=== PATIENT | male | born 1965 | race African-American/Black ===

== ENCOUNTER 2023-12-23 09:43 | Outpatient (AMB) | payer OTHER, SELFPAY ==
[2023-12-23 09:41] VITALS: BP 120/80; PULSE 54; O2SAT 100; BMI 26.9
--- NOTE | 2023-12-23 09:41 | HO.NEPHOV ---
Vital Signs 12/23/23 09:41 Height 6 ft 1 in Weight 204 lb BMI 26.9 BP 120/80 Blood Pressure Location Lt brachial Position Sitting Pulse 54 Pulse Source Pulse Oximeter Pulse Oximetry (%) 100 Oxygen Delivery Method Room Air Intake Visit Reasons: Previous Patient Clinical Exercise Specialist Required: No Accompanied by: Self / Same As Patient Allergies No Known Allergies Allergy (Verified 12/23/23 09:43) HPI Comments Details: Dada is well known to me for the last 20 years. 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 Over the last several years he has been on low-dose of JENNIFER inhibitors which she has tolerated very well. He had no significant protein excretion on the recent studies. Serum creatinine has been staying around 1.2-1.2 mg/dL. Recently creatinine bumped up to 1.64 and hence this referral. Dada tells me that he has been taking creatinine as a muscle supplement and he goes to gym regularly. [facility] Social History (Updated 12/23/23 @ 09:43 by VERONIKA Ledbetter) Comment: Occ Review of Systems Const Denies fever(s) and Denies weight loss Card Denies chest pain Resp Denies cough and Denies hemoptysis GI Denies abdominal pain, Denies diarrhea and Denies nausea Musc Denies back pain Neuro Denies focal weakness Physical Exam Vital Signs: Last Vital Signs Pulse 54 12/23/23 09:41 BP 120/80 12/23/23 09:41 Pulse Ox 100 12/23/23 09:41 Oxygen Delivery Method Room Air 12/23/23 09:41 BMI result Body Mass Index 26.9 Const General: comfortable; No acute distress Orientation/consciousness: patient oriented x3 Eyes General: appearance normal, both eyes and all related structures Visual Patel: normal visual patel by confrontation Neck Neck: Yes supple and Yes no JVD Resp Effort & Inspection: normal respiratory effort and respiratory effort not decreased Auscultation: rhonchi Cardio Palpation: no palpable S3 and no palpable S4 Heart sounds: no rubs GI Inspection: Yes normal to inspection Palpation (GI): Soft to palpation Percussion: Yes normal to percussion Auscultation: normal bowel sounds General: Yes no CVA tenderness Back/Spine/Pelvis Back: no CVA tenderness Skin General skin exam: no petechiae and no purpura Neuro General: patient oriented x3 and no focal motor deficits Extrem General: No clubbing and No edema Results Reviewed Results Reviewed: Creatinine 1.6 Nephrology Results: No Data to Display Assessment & Plan Assessment & Plan (1) Elevated serum creatinine: Code(s): R79.89 - Other specified abnormal findings of blood chemistry Category: Medical (2) Focal segmental glomerulosclerosis: Code(s): N05.1 - Unspecified nephritic syndrome with focal and segmental glomerular lesions Category: Medical Plan Dada as 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 He has been conservatively managed with JENNIFER inhibition and blood pressure controlled. Serum creatinine has been stable around 1.2 mg/dL for last several years. There has been a recent increase serum creatinine up to 1.6 mg/dL. However he has also been taking creatinine supplements and he has been exercising regularly. Although the recent serum creatinine could be due to natural progression of underlying disease, the role of creatinine and increased muscle mass should be considered. For now I will start with a 24 urine collection to calculate the creatinine clearance and to quantify the urine protein excretion. Based on this we can plan on further workup if needed. His blood pressure is acceptable Continue with JENNIFER inhibitor for renal protection and blood pressure control. Encouraged him to stand low-sodium diet. He returned to the office after the baseline workup is completed Orders: Orders Basic Metabolic Panel Today R79.89 - Other specified abnormal findings of blood chemistry UA and rflx microscopic Today R7.89 - Other specified abnormal findings of blood chemistry Creatinine Urine Today R79.89 - Other specified abnormal findings of blood chemistry Protein, 24 Hr Urine Group Today R79.89 - Other specified abnormal findings of blood chemistry Creatinine, 24 Hr Group Today R79.89 - Other specified abnormal findings of blood chemistry Creatine Kinase Total Today R7.89 - Other specified abnormal findings of blood chemistry Coding Level of Care Code New Pt Level 4 (04220) Diagnoses Elevated serum creatinine R7. Focal segmental glomerulosclerosis N05.1
== END 2023-12-23 10:01 | disposition home or self-care (01) ==
PROVIDERS: PCP Internal Medicine; Visit Provider Internal Medicine Hypertension Specialist
DX: R79.89 Other specified abnormal findings of blood chemistry (principal); N05.1 Unspecified nephritic syndrome with focal and segmental glomerular lesions
CPT/HCPCS: 99204

== ENCOUNTER → 2023-12-23 09:43 | Outpatient (BNVA) | payer OTHER, SELFPAY | PROVIDERS: PCP Internal Medicine; Visit Provider Internal Medicine Hypertension Specialist ==

== ENCOUNTER 2023-12-23 10:09 | Outpatient (REF) | payer OTHER, SELFPAY ==
[2023-12-23 18:08] LABS: Appearance Urine Clear; Color Urine Yellow; Glucose Urine UA Negative (Negative); Leukocyte Esterase Urine Negative (Negative); Nitrite Urine Negative (Negative); UMIC TRIGGER UA YES; Urine Blood Negative (Negative); Urine Ketones Negative (Negative); Urine Protein 100 (2+) mg/dL (Neg-Trace)
[2023-12-23 18:21] LABS: Creatinine Urine 221.41 mg/dL
[2023-12-23 18:27] LABS: Anion Gap 14 (12-20); Blood Urea Nitrogen 10 mg/dL (9-16); Calcium 9.4 mg/dL (8.4-10.2); Carbon Dioxide 25 mmol/L (22-29); Chloride 105 mmol/L (96-108); Estimated Glomerular Filt Rate > 60; Glucose Random 124 mg/dL (60-115); Potassium 3.8 mmol/L (3.3-5.1); Sodium 140 mmol/L (135-145)
[2023-12-23 18:52] LABS: Bacteria Urine None Seen (None Seen); Hyaline Casts Urine 0-2 /LPF (0-2); RBC Urine 0-2 /HPF (0-2); Squamous Epithelial Cell Urine 0-2 /HPF (0-2); WBC Urine 0-5 /HPF (0-5)
== END 2023-12-23 10:10 | disposition home or self-care (01) ==
LOC: HO.HKASLDS 10:09
PROVIDERS: Visit Provider Internal Medicine Hypertension Specialist
DX: R79.89 Other specified abnormal findings of blood chemistry (principal)
CPT/HCPCS: 36415; 80048; 81001; 82570

== ENCOUNTER 2024-01-06 09:52 | Outpatient (AMB) | payer OTHER, SELFPAY ==
[2024-01-06 09:53] VITALS: BP 110/80; PULSE 56; O2SAT 96; BMI 26.8
--- NOTE | 2024-01-06 09:53 | HO.NEPHOV ---
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 Over the last several years he has been on low-dose of JENNIFER inhibitors which she has tolerated very well. He had no significant protein excretion on the recent studies. Serum creatinine has been staying around 1.2-1.2 mg/dL. Recently creatinine bumped up to 1.64 and hence this referral. Dada tells me that he has been taking creatinine as a muscle supplement and he goes to gym regularly. [facility] Social History Comment: Occ Physical Exam Vital Signs: Last Vital Signs Pulse 56 01/06/24 09:53 BP 110/80 01/06/24 09:53 Pulse Ox 96 01/06/24 09:53 Oxygen Delivery Method Room Air 01/06/24 09:53 BMI result Body Mass Index 26.8 Const General: comfortable; No acute distress Orientation/consciousness: patient oriented x3 Eyes General: appearance normal, both eyes and all related structures Visual Jaimes: normal visual jaimes by confrontation Neck Neck: Yes supple and Yes no JVD Resp Effort & Inspection: normal respiratory effort and respiratory effort not decreased Auscultation: rhonchi Cardio Palpation: no palpable S3 and no palpable S4 Heart sounds: no rubs GI Inspection: Yes normal to inspection Palpation (GI): Soft to palpation Percussion: Yes normal to percussion Auscultation: normal bowel sounds General: Yes no CVA tenderness Back/Spine/Pelvis Back: no CVA tenderness Skin General skin exam: no petechiae and no purpura Neuro General: patient oriented x3 and no focal motor deficits Extrem General: No clubbing and No edema Results Reviewed Nephrology Results: Sodium 140 mmol/L (135-145) 12/23/23 Potassium 3.8 mmol/L (3.3-5.1) 12/23/23 Chloride 105 mmol/L (96-108) 12/23/23 Carbon Dioxide 25 mmol/L (22-29) 12/23/23 BUN 10 mg/dL (9-16) 12/23/23 Creatinine 1.15 mg/dL (0.5-1.4) 12/23/23 Calcium 9.4 mg/dL (8.4-10.2) 12/23/23 Urine Protein 100 (2+) mg/dL (Neg-Trace) H 12/23/23 Urine Creatinine 221.41 mg/dL 12/23/23 Assessment & Plan Assessment & Plan (1) Elevated serum creatinine: Code(s): R79.89 - Other specified abnormal findings of blood chemistry Category: Medical (2) Focal segmental glomerulosclerosis: Code(s): N05.1 - Unspecified nephritic syndrome with focal and segmental glomerular lesions Category: Medical Plan Dada as 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 He has been conservatively managed with JENNIFER inhibition and blood pressure controlled. Serum creatinine has been stable around 1.2 mg/dL for last several years. There has been a recent increase serum creatinine up to 1.6 mg/dL. However he has also been taking creatinine supplements and he has been exercising regularly. Although the recent serum creatinine could be due to natural progression of underlying disease, the role of creatinine and increased muscle mass should be considered. 24 urine collection to creatinine clearance protein excretion of 1680 mg eGFR of 63 ml/mt No need for repeat biopsy Keep on ACEi Follow creatinine and protein excretion His blood pressure is acceptable Continue with JENNIFER inhibitor for renal protection and blood pressure control. Encouraged him to stand low-sodium diet. Orders: Orders Total Protein Urine Random 2 Months N05.1 - Unspecified nephritic syndrome with focal and segmental glomerular lesions, R79.89 - Other specified abnormal findings of blood chemistry Creatinine Urine 2 Months N05.1 - Unspecified nephritic syndrome with focal and segmental glomerular lesions, R79.89 - Other specified abnormal findings of blood chemistry UA and rflx microscopic 2 Months N05.1 - Unspecified nephritic syndrome with focal and segmental glomerular lesions, R79.89 - Other specified abnormal findings of blood chemistry Basic Metabolic Panel 2 Months N05.1 - Unspecified nephritic syndrome with focal and segmental glomerular lesions, R79.89 - Other specified abnormal findings of blood chemistry Medications: Changed From lisinopril 5 mg PO DAILY To lisinopril 10 mg PO DAILY 90 tabs 1RF Coding Level of Care Code Est Pt Level 4 (43123) Diagnoses Elevated serum creatinine R79.89 Focal segmental glomerulosclerosis N05.1
== END 2024-01-06 10:06 | disposition home or self-care (01) ==
PROVIDERS: PCP Internal Medicine; Visit Provider Internal Medicine Hypertension Specialist
DX: R79.89 Other specified abnormal findings of blood chemistry (principal); N05.1 Unspecified nephritic syndrome with focal and segmental glomerular lesions
CPT/HCPCS: 99214

== ENCOUNTER → 2024-01-06 09:52 | Outpatient (BNVA) | payer OTHER, SELFPAY | PROVIDERS: PCP Internal Medicine; Visit Provider Internal Medicine Hypertension Specialist ==

== ENCOUNTER 2024-03-09 09:05 | Outpatient (AMB) | payer OTHER, SELFPAY ==
[2024-03-09 09:03] VITALS: BP 114/72; PULSE 58; O2SAT 97; BMI 26.8
--- NOTE | 2024-03-09 09:03 | HO.NEPHOV ---
Vital Signs 03/09/24 09:03 Height 6 ft 1 in Weight 203 lb BMI 26.8 BP 114/72 Blood Pressure Location Lt brachial Position Sitting Pulse 58 Pulse Source Pulse Oximeter Pulse Oximetry (%) 97 Oxygen Delivery Method Room Air Intake Visit Reasons: Elevated serum creatinine/ Conf Irrigation System Installer Required: No Accompanied by: Self / Same As Patient Allergies No Known Allergies Allergy (Verified 03/09/24 09:08) Medication List - Last Reconciled 03/09/24 by Feliciano Desir MD lisinopril 10 mg PO DAILY HPI Comments Details: Dada is well known to me for the last 20 years. 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 Over the last several years he has been on low-dose of JENNIFER inhibitors which she has tolerated very well. He had no significant protein excretion on the recent studies. Serum creatinine has been staying around 1.2-1.2 mg/dL. Recently creatinine bumped up to 1.64 and hence this referral. Dada tells me that he has been taking creatinine as a muscle supplement and he goes to gym regularly. 03/09/24 Takes 4 scoops of Creatinine , 1 protein shake and negron beers [facility] Social History Comment: Occ Physical Exam Vital Signs: Last Vital Signs Pulse 58 03/09/24 09:03 BP 114/72 03/09/24 09:03 Pulse Ox 97 03/09/24 09:03 Oxygen Delivery Method Room Air 03/09/24 09:03 BMI result Body Mass Index 26.8 Const General: comfortable; No acute distress Orientation/consciousness: patient oriented x3 Eyes General: appearance normal, both eyes and all related structures Visual Jaimes: normal visual jaimes by confrontation Neck Neck: Yes supple and Yes no JVD Resp Effort & Inspection: normal respiratory effort and respiratory effort not decreased Auscultation: rhonchi Cardio Palpation: no palpable S3 and no palpable S4 Heart sounds: no rubs GI Inspection: Yes normal to inspection Palpation (GI): Soft to palpation Percussion: Yes normal to percussion Auscultation: normal bowel sounds General: Yes no CVA tenderness Back/Spine/Pelvis Back: no CVA tenderness Skin General skin exam: no petechiae and no purpura Neuro General: patient oriented x3 and no focal motor deficits Extrem General: No clubbing and No edema Results Reviewed Nephrology Results: Sodium 140 mmol/L (135-145) 12/23/23 Potassium 3.8 mmol/L (3.3-5.1) 12/23/23 Chloride 105 mmol/L (96-108) 12/23/23 Carbon Dioxide 25 mmol/L (22-29) 12/23/23 BUN 10 mg/dL (9-16) 12/23/23 Creatinine 1.15 mg/dL (0.5-1.4) 12/23/23 Calcium 9.4 mg/dL (8.4-10.2) 12/23/23 Urine Protein 100 (2+) mg/dL (Neg-Trace) H 12/23/23 Urine Creatinine 221.41 mg/dL 12/23/23 Assessment & Plan Assessment & Plan (1) Elevated serum creatinine: Code(s): R79.89 - Other specified abnormal findings of blood chemistry Category: Medical (2) Focal segmental glomerulosclerosis: Code(s): N05.1 - Unspecified nephritic syndrome with focal and segmental glomerular lesions Category: Medical Plan Dada as 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 He has been conservatively managed with JENNIFER inhibition and blood pressure controlled. Serum creatinine has been stable around 1.2 mg/dL for last several years. There has been a recent increase serum creatinine up to 1.6 mg/dL. However he has also been taking creatinine supplements and he has been exercising regularly. Although the recent serum creatinine could be due to natural progression of underlying disease, the role of creatinine and increased muscle mass should be considered. Also, Consumption of Creatine could be contributing 24 urine collection to creatinine clearance protein excretion of 1680 mg eGFR of 63 ml/mt No need for repeat biopsy Keep on ACEi His blood pressure is acceptable Continue with JENNIFER inhibitor for renal protection and blood pressure control. Encouraged him to stand low-sodium diet. Will follow creatinine and urine PRo: Cr Orders: Orders Creatinine Urine Today N05.1 - Unspecified nephritic syndrome with focal and segmental glomerular lesions, R79.89 - Other specified abnormal findings of blood chemistry Total Protein Urine Random Today N05.1 - Unspecified nephritic syndrome with focal and segmental glomerular lesions, R79.89 - Other specified abnormal findings of blood chemistry Coding Level of Care Code Est Pt Level 4 (16159) Diagnoses Elevated serum creatinine R79.89 Focal segmental glomerulosclerosis N05.1
== END 2024-03-09 09:31 | disposition home or self-care (01) ==
PROVIDERS: PCP Internal Medicine; Visit Provider Internal Medicine Hypertension Specialist
DX: R79.89 Other specified abnormal findings of blood chemistry (principal); N05.1 Unspecified nephritic syndrome with focal and segmental glomerular lesions
CPT/HCPCS: 99214

== ENCOUNTER → 2024-03-09 09:05 | Outpatient (BNVA) | payer OTHER, SELFPAY | PROVIDERS: PCP Internal Medicine; Visit Provider Internal Medicine Hypertension Specialist ==

== ENCOUNTER 2024-03-09 09:19 | Outpatient (REF) | payer OTHER, SELFPAY ==
[2024-03-09 17:45] LABS: Appearance Urine Clear; Color Urine Yellow; Glucose Urine UA Negative (Negative); Leukocyte Esterase Urine Negative (Negative); Nitrite Urine Negative (Negative); Specific Gravity - Urine 1.025 (1.005-1.025); UMIC TRIGGER UA YES; Urine Blood Negative (Negative); Urine Ketones Trace mg/dL (Negative); Urine Protein 300 (3+) mg/dL (Neg-Trace)
[2024-03-09 17:50] LABS: Bacteria Urine None Seen (None Seen); Hyaline Casts Urine 0-2 /LPF (0-2); RBC Urine 0-2 /HPF (0-2); Squamous Epithelial Cell Urine 0-2 /HPF (0-2); WBC Urine 0-5 /HPF (0-5)
[2024-03-09 17:59] LABS: Anion Gap 9 (12-20); Blood Urea Nitrogen 12 mg/dL (9-16); Calcium 9.4 mg/dL (8.4-10.2); Carbon Dioxide 29 mmol/L (22-29); Chloride 105 mmol/L (96-108); Estimated Glomerular Filt Rate 50; Glucose Random 150 mg/dL (60-115); Potassium 3.5 mmol/L (3.3-5.1); Sodium 139 mmol/L (135-145)
[2024-03-09 18:10] LABS: Creatinine Urine 321.72 mg/dL; Total Protein Urine Random 144 mg/dL (<12)
== END 2024-03-09 09:20 | disposition home or self-care (01) ==
LOC: HO.HKASLDS 09:19
PROVIDERS: Visit Provider Internal Medicine Hypertension Specialist
DX: N05.1 Unspecified nephritic syndrome with focal and segmental glomerular lesions (principal); R79.89 Other specified abnormal findings of blood chemistry
CPT/HCPCS: 36415; 80048; 81001; 82570; 84156

== ENCOUNTER 2024-07-25 14:26 | Outpatient (AMB) | payer OTHER, SELFPAY ==
--- NOTE | 2024-07-25 14:27 | HO.NEPHOV ---
Vital Signs 07/25/24 14:28 Height 6 ft 1 in Weight 200 lb BMI 26.4 BP 108/66 Blood Pressure Location Lt brachial Position Sitting Pulse 64 Pulse Source Pulse Oximeter Pulse Oximetry (%) 96 Oxygen Delivery Method Room Air Intake Visit Reasons: 4 mon follow up-Conf Child Study Team Director Required: No Accompanied by: Self / Same As Patient Allergies No Known Allergies Allergy (Verified 07/25/24 14:30) Medication List - Last Reconciled 07/25/24 by Feliciano Desir MD lisinopril 10 mg PO DAILY HPI Comments Details: Dada is well known to me for the last 20 years. 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 Over the last several years he has been on low-dose of JENNIFER inhibitors which she has tolerated very well. He had no significant protein excretion on the recent studies. Serum creatinine has been staying around 1.2-1.2 mg/dL. Recently creatinine bumped up to 1.64 and hence this referral. Dada tells me that he has been taking creatinine as a muscle supplement and he goes to gym regularly. 03/09/24 Takes 4 scoops of Creatinine , 1 protein shake and negron beers 07/25/24 Doing well Has cut back on Creatine [facility] Social History Comment: Occ Physical Exam Vital Signs: Last Vital Signs Pulse 64 07/25/24 14:28 BP 108/66 07/25/24 14:28 Pulse Ox 96 07/25/24 14:28 Oxygen Delivery Method Room Air 07/25/24 14:28 BMI result Body Mass Index 26.4 Comfortable Neck supple no JVD. Lungs entry equal no rales. Heart S1-S2 heard no gallop or rub. Abdomen soft nontender. Neuro alert awake oriented. No asterixis. Extremities no edema. Results Reviewed Nephrology Results: Sodium 141 mmol/L (135-145) 07/25/24 Potassium 4.1 mmol/L (3.3-5.1) 07/25/24 Chloride 108 mmol/L (96-108) 07/25/24 Carbon Dioxide 28 mmol/L (22-29) 07/25/24 BUN 11 mg/dL (9-16) 07/25/24 Creatinine 1.23 mg/dL (0.5-1.4) 07/25/24 Calcium 9.4 mg/dL (8.4-10.2) 07/25/24 Urine Protein 100 (2+) mg/dL (Neg-Trace) H 07/25/24 Urine Creatinine 166.16 mg/dL 07/25/24 Assessment & Plan Assessment & Plan (1) Elevated serum creatinine: Code(s): R79.89 - Other specified abnormal findings of blood chemistry Category: Medical (2) Focal segmental glomerulosclerosis: Code(s): N05.1 - Unspecified nephritic syndrome with focal and segmental glomerular lesions Category: Medical Plan Dada as 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 He has been conservatively managed with JENNIFER inhibition and blood pressure controlled. Serum creatinine has been stable around 1.2 mg/dL for last several years. There has been a recent increase serum creatinine up to 1.6 mg/dL. However he has also been taking creatinine supplements and he has been exercising regularly. Although the recent serum creatinine could be due to natural progression of underlying disease, the role of creatinine and increased muscle mass should be considered. Also, Consumption of Creatine could be contributing 24 urine collection to creatinine clearance protein excretion of 1680 mg eGFR of 63 ml/mt No need for repeat biopsy Keep on ACEi His blood pressure is acceptable Continue with JENNIFER inhibitor for renal protection and blood pressure control. Encouraged him to stand low-sodium diet. Will follow creatinine and urine Pro: Cr Orders: Orders UA and rflx microscopic 07/25/24 N05.1 - Unspecified nephritic syndrome with focal and segmental glomerular lesions Basic Metabolic Panel 07/25/24 N05.1 - Unspecified nephritic syndrome with focal and segmental glomerular lesions Total Protein Urine Random 07/25/24 N05.1 - Unspecified nephritic syndrome with focal and segmental glomerular lesions Creatinine Urine 07/25/24 N05.1 - Unspecified nephritic syndrome with focal and segmental glomerular lesions Coding Level of Care Code Est Pt Level 4 (31846) Diagnoses Elevated serum creatinine R79.89 Focal segmental glomerulosclerosis N05.1
[2024-07-25 14:28] VITALS: BP 108/66; PULSE 64; O2SAT 96; BMI 26.4
--- OUTSIDE RECORDS SUMMARY | 2024-07-25 18:54 | XMS_ITS | Clinical Summary ---
Author Organization [facility] Address [address] [place] [id number] Care Team Providers Care Senior Software Qa Engineer Name Role Phone Unavailable Primary Care Provider Unavailabl e Allergies No known active allergies Medications hydrocortisone (WESTCORT) 0.2 % cream Apply BID to affected areas 0 Active lisinopril 5 MG tabletIndication s:Hypertensive chronic kidney disease, unspecified, with chronic kidney disease stage I through stage IV, or unspecified TAKE ONE TABLET BY MOUTH ONCE DAILY 90 tablet 3 3 Active Active Problems Problem Noted Date Diagnosed Date Chronic glomerulonephritis 07/17/2021 Chronic kidney disease stage 1 07/17/2021 Hypertensive chronic kidney disease, unspecified, with chronic kidney disease stage I through stage IV, or unspecified 07/17/2021 Benign prostatic hyperplasia with lower urinary tract symptom 09/18/2017 Overview (07/17/2021): Seeing Dr Mccartney for urology. Lumbar disc prolapse with radiculopathy 07/20/19 15 Overview (07/17/2021): At L4-L5, 1.3 x 0.7 x 0.8 cm disc herniation compressing the right L5 nerve root in the spinal canal and right lateral recess. At L5-S1, left disc herniation compresses the left S1 nerve root in the canal and lateral recess. 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 08/20/2006 Immunizations Name Administration Dates Next Due Influenza TIV (IM) 04/13/2019,04/20/2018 Pneumococcal Polysaccharide 01/26/2018 Td 09/10/1998 Tdap 01/26/2018,01/28/2008 Family History Medical History Relation Comments Diabetes Father Heart disease Father Hypertension Father Cancer Mother Relation Status Comments Father Unknown Mother Unknown Social History Tobacco Use Types Packs/Day Years Used Date Smoking Tobacco: Smoker, Current Status Unknown Cigars Smokeless Tobacco: Never Tobacco Cessation:Ready to Q uit: No; Counseling Given: No Alcohol Use Standard Drinks/Week Comments Yes 0 (1 standard drink = 0.6 oz pure alcohol) Alcoholic Drinks/day: Occasional social drink Sex and Gender Information Value Date Recorded Sex Assigned at Not on file Legal Sex Male 4:59 PM EST Gender Identity Not on file Sexual Orientation Not on file Last Filed Vital Signs Vital Sign Reading Time Taken Comments Blood Pressure 124/76 07/17/2021 12:53 PM EST Pulse 61 07/17/2021 12:53 PM EST Temperature - - Respiratory Rate - - Oxygen Saturation 100% 07/17/2021 12:53 PM EST Inhaled Oxygen Concentration - - Weight 89.8 kg (198 lb) 07/17/2021 12:53 PM EST Height 185.4 cm (6' 1 ) 07/25/2020 12:00 PM EST Body Mass Index 26.12 07/25/2020 12:00 PM EST Plan of Treatment Health Maintenance Due Date Last Done Comments Hepatitis B Vaccine (1 of 3 - 19+ 3-dose series) 11/08/1983 Colorectal Cancer Screening: Annual FOBT 2013 Colorectal Cancer Screening: Colonoscopy 2013 Colorectal Cancer Screening: Sigmoidoscopy 2013 Pneumococcal Vaccine: Pediat rics (0 to 5 Years) and At-Risk Patients (6 to 64 Years) (2 of 2 - PCV) 01/26/2019 01/26/2018 Influenza Vaccine (#1) 2024 04/13/2019, 2017 Insurance [employer] [facility]
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
--- OUTSIDE RECORDS SUMMARY | 2024-07-25 18:54 | XMS_ITS | Encounter Summary ---
Author Organization [facility] Address [address] [facility] [address] [place] [address] Phone Care Team Providers Care Quality Supervisor Name Role Phone Unavailable Primary Care Provider Unavailabl e Reason for Visit * Reason Comments Med Refill Encounter Details Date Type Department Care Team ([facility] st Contact Info) Description 10/08/2020 Refill [facility] [address] [facility] [address] [place] [address] Coy Webber MD [address] [facility] [address] [place] [phone] Social History Tobacco Use Types Packs/Day Years Used Date Smoking Tobacco: Smoker, Current Status Unknown Alcohol Use Standard Drinks/Week Comments Yes 0 (1 standard drink = 0.6 oz pure alcohol) Alcoholic Drinks/day: Occasional social drink Sex and Gender Information Value Date Recorded Sex Assigned at Not on file Legal Sex Male 4:59 PM EST Gender Identity Not on file Sexual Orientation Not on file COVID-19 Exposure Response Date Recorded In the last month, have you been in contact with someone who was confirmed or suspected to have Coronavirus / COVID-19? No / Unsure 09/19/2020 9:24 AM EDT documented as of this encounter Miscellaneous Notes * Telephone Encounter - Holly Stallings - 10/17/2020 1:43 PM EDT Matt Barakat Pt is a Dr.Athreya lares and needs a refill on his lisinopril. It was send to but he is away. * Telephone Encounter - Coy Webber MD - 10/08/2020 9:56 AM EDT Forward this RX to Dr Valdovinos documented in this encounter Plan of Treatment Not on file documented as of this encounter Visit Diagnoses Not on filedocumented in this encounter
--- OUTSIDE RECORDS SUMMARY | 2024-07-25 18:54 | XMS_ITS | Encounter Summary ---
Author Organization [facility] Address [address] [place] [address] Care Team Providers Care Decorator Store Name Role Phone Akash Blas MD Primary Care Provider [phone] Reason for Visit * Reason Onset Date Comments Elbow Injury 07/11/2024 Encounter Details Date Type Department Care Team (Late st Contact Info) Description 07/11/2024 Telephone Internal Medicine - [facility] [address] [place] [address] Akash Blas MD [address] [place] [address] [phone] Elbow Injury Social History Tobacco Use Types Packs/Day Years [...] file Not on file Not on file documented as of this encounter Plan of Treatment Upcoming Encounters Date Type Department Care Team (Late st Contact Info) Description 08/08/2024 8:45 AM EST [facility] [address] [place] [address] Vci Crocker PA [address] [place] [address] documented as of this encounter Visit Diagnoses Not on filedocumented in this encounter Care Teams Decorator Store Relationship Specialty Start Date End Date Akash Blas MD [address] [place] [address] PCP - General Internal Medicine 05/11/24 documented as of this encounter
== END 2024-07-25 14:51 | disposition home or self-care (01) ==
PROVIDERS: PCP Internal Medicine; Visit Provider Internal Medicine Hypertension Specialist
DX: R79.89 Other specified abnormal findings of blood chemistry (principal); N04.1 Nephrotic syndrome with focal and segmental glomerular lesions
CPT/HCPCS: 99214

== ENCOUNTER 2024-07-25 14:26 | Outpatient (REF) | payer OTHER, SELFPAY ==
[2024-07-25 15:33] LABS: Appearance Urine Clear; Color Urine Yellow; Glucose Urine UA Negative (Negative); Leukocyte Esterase Urine Negative (Negative); Nitrite Urine Negative (Negative); UMIC TRIGGER UA YES; Urine Blood Negative (Negative); Urine Ketones Negative (Negative); Urine Protein 100 (2+) mg/dL (Neg-Trace)
[2024-07-25 15:35] LABS: Bacteria Urine None Seen (None Seen); Hyaline Casts Urine 0-2 /LPF (0-2); RBC Urine 0-2 /HPF (0-2); Squamous Epithelial Cell Urine 0-2 /HPF (0-2); WBC Urine 0-5 /HPF (0-5)
[2024-07-25 15:54] LABS: Anion Gap 9 (12-20); Blood Urea Nitrogen 11 mg/dL (9-16); Calcium 9.4 mg/dL (8.4-10.2); Carbon Dioxide 28 mmol/L (22-29); Chloride 108 mmol/L (96-108); Estimated Glomerular Filt Rate > 60; Glucose Random 75 mg/dL (60-115); Potassium 4.1 mmol/L (3.3-5.1); Sodium 141 mmol/L (135-145)
[2024-07-25 16:28] LABS: Creatinine Urine 166.16 mg/dL; Total Protein Urine Random 56 mg/dL (<12)
== END 2024-07-25 14:27 | disposition home or self-care (01) ==
LOC: HO.LAB 14:26
PROVIDERS: PCP Internal Medicine; Visit Provider Internal Medicine Hypertension Specialist
DX: N05.1 Unspecified nephritic syndrome with focal and segmental glomerular lesions (principal); R79.89 Other specified abnormal findings of blood chemistry
CPT/HCPCS: 36415; 80048; 81001; 82550; 82570; 84156

== ENCOUNTER 2025-01-23 11:27 | Outpatient (AMB) | payer OTHER, SELFPAY ==
--- NOTE | 2025-01-23 11:32 | HO.NEPHOV ---
Vital Signs 01/23/25 11:33 Height 6 ft 1 in Weight 205 lb BMI 27.0 BP 128/76 Blood Pressure Location Rt brachial Position Sitting Pulse 69 Pulse Source Pulse Oximeter Pulse Oximetry (%) 99 Oxygen Delivery Method Room Air Intake Visit Reasons: Elevated serum creatinine-Conf Saturation Equipment Operator Required: No Accompanied by: Self / Same As Patient Allergies No Known Allergies Allergy (Verified 01/23/25 11:34) Medication List - Last Reconciled 01/23/25 by Feliciano Desir MD lisinopril 10 mg PO DAILY HPI Comments Details: Dada is well known to me for the last 20 years. 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 Over the last several years he has been on low-dose of JENNIFER inhibitors which she has tolerated very well. He had no significant protein excretion on the recent studies. Serum creatinine has been staying around 1.2-1.2 mg/dL. Recently creatinine bumped up to 1.64 and hence this referral. Dada tells me that he has been taking creatinine as a muscle supplement and he goes to gym regularly. 03/09/24 Takes 4 scoops of Creatinine , 1 protein shake and negron beers 07/25/24 Doing well Has cut back on Creatine 01/23/2025. Overall he is doing well. No new issues today [facility] Social History Comment: Occ Physical Exam Vital Signs: Last Vital Signs Pulse 69 01/23/25 11:33 BP 128/76 01/23/25 11:33 Pulse Ox 99 01/23/25 11:33 Oxygen Delivery Method Room Air 01/23/25 11:33 BMI result Body Mass Index 27.0 Comfortable Neck supple no JVD. Lungs entry equal no rales. Heart S1-S2 heard no gallop or rub. Abdomen soft nontender. Neuro alert awake oriented. No asterixis. Extremities no edema. Results Reviewed Nephrology Results: Sodium, (135-145) 141 mmol/L 07/25/24 Potassium, (3.3-5.1) 4.1 mmol/L 07/25/24 Chloride, (96-108) 108 mmol/L 07/25/24 Carbon Dioxide, (22-29) 28 mmol/L 07/25/24 BUN, (9-16) 11 mg/dL 07/25/24 Creatinine, (0.5-1.4) 1.23 mg/dL 07/25/24 Calcium, (8.4-10.2) 9.4 mg/dL 07/25/24 Urine Protein, (Neg-Trace) 100 (2+) mg/dL H 07/25/24 Urine Creatinine 166.16 mg/dL 07/25/24 Assessment & Plan Assessment & Plan (1) Elevated serum creatinine: Code(s): R79.89 - Other specified abnormal findings of blood chemistry Category: Medical (2) Focal segmental glomerulosclerosis: Code(s): N05.1 - Unspecified nephritic syndrome with focal and segmental glomerular lesions Category: Medical Plan Dada as 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 He has been conservatively managed with JENNIFER inhibition and blood pressure controlled. Serum creatinine has been stable around 1.2 mg/dL for last several years. There has been a recent increase serum creatinine up to 1.6 mg/dL. However he has also been taking creatinine supplements and he has been exercising regularly. Although the recent serum creatinine could be due to natural progression of underlying disease, the role of creatinine and increased muscle mass should be considered. Also, Consumption of Creatine could be contributing 24 urine collection to creatinine clearance protein excretion of 1680 mg eGFR of 63 ml/mt No need for repeat biopsy Keep on ACEi His blood pressure is acceptable Continue with JENNIFER inhibitor for renal protection and blood pressure control. Encouraged him to stand low-sodium diet. Will follow creatinine and urine Pro: Cr Orders: Orders Basic Metabolic Panel 6 Months N05.1 - Unspecified nephritic syndrome with focal and segmental glomerular lesions Creatinine Urine 6 Months N05.1 - Unspecified nephritic syndrome with focal and segmental glomerular lesions Total Protein Urine Random 6 Months N05.1 - Unspecified nephritic syndrome with focal and segmental glomerular lesions UA and rflx microscopic 6 Months N05.1 - Unspecified nephritic syndrome with focal and segmental glomerular lesions Coding Level of Care Code Est Pt Level 4 (50530) Diagnoses Elevated serum creatinine R79.89 Focal segmental glomerulosclerosis N05.1
[2025-01-23 11:33] VITALS: BP 128/76; PULSE 69; O2SAT 99; BMI 27.0
--- OUTSIDE RECORDS SUMMARY | 2025-01-23 12:44 | XMS_ITS | Clinical Summary ---
Author Organization [place] [address] [place] [facility] Building Address [address] [facility] [place] [address] Phone Care Team Providers Care Fur Tailor Name Role Phone Akash Blas MD Primary Care Provider [phone] Allergies No known active allergies Medications lisinopriL (PRINIVIL,ZESTRI L) 5 mg tablet Take 1 tablet (5 mg total) by mouth 1 (one) time each day. 90 each 1 08/08/2024 Active Active Problems Problem Noted Date Diagnosed [...] membranous glomerulonephritis 08/20/2006 Essential hypertension, benign 08/20/2006 Immunizations Name Administration Dates Next Due Influenza trivalent, 0.5mL, preservative free (Fluarix; FluLaval; Fluzone) ages 6mo and older (Afluria) 3 years and older 04/13/2019,04/20/2018 Influenza, Unspecified 02/27/2022 Pfizer SARS-CoV-2 COVID-19, mRNA, LNP-S, preservative free 05/26/2022,05/21/2021,11/04/2020,10/14 Pneumococcal polysaccharide 23 valent (Pneumovax 23) 2yo and older 01/26/2018 Td Tetanus diptheria (Tdvax) 7yo and older 09/10/1998 Tdap Tetanus diptheria acell ular pertussis (Boostrix; Adacel) 7yo and older 01/26/2018,01/28/2008 Surgical History Surgery Date Site/Laterality Comments OTHER SURGICAL HISTORY 2006 PROCEDURE: [place] RENAL BIOPSY SURG EXPOSURE KIDNEY; COMMENT: FSGS [...] Smoking Tobacco: Some Days Smokeless Tobacco: Never Tobacco Cessation:Ready to Q uit: Not Asked; Counseling Given: Not Answered Alcohol Use Standard Drinks/Week Comments Yes 0 (1 standard drink = 0.6 oz pur e alcohol) Housing Instability Answer Date Recorde d Are you worried that in the next 2 months you may not have stable housing? Patient declined 08/07/2024 Food Access & Nutrition Answer Date Rec orded Do you have access to a vari ety of food including fruits and vegetables? Patient declined 08/07/2024 Health Literacy Answer Date Recorded How often do you need to hav e someone help you when you read instructions, pamphlets, or other written material from your doctor or pharmacy? Never 08/07/2024 Caregiver: How often do you need to have someone help you when you read instructions, pamphlets, or other written material from your doctor or pharmacy? Not on file 08/07/2024 Financial Risk Answer Date Recorded How hard is it for you to pa y for the very basics like food, housing, medical care, and air conditioning / heating? Patient declined 08/07/2024 Transportation Answer Date Recorded Has the lack of transportati on kept you from meetings, work, or from getting things needed for daily living? Patient declined 08/07/2024 Has the lack of transportati on kept you from medical appointments or from getting medications? Patient declined 08/07/2024 Social Isolation Answer Date Recorded How often do you feel lonely or isolated from th ose around you? Never 08/07/2024 Food Risk Answer Date Recorded Within the past 12 months we worried whether our food would run out before we got money to buy more. Never true 08/07/2024 Within the past 12 months th e food we bought just didn't last and we didn't have money to get more. Never true 08/07/2024 Dependent Care Answer Date Recorded Do you need help finding or paying for care for your loved ones. For example, childcare worker or elderly care for an older adult? Patient declined 08/07/2024 Education Answer Date Recorded Do you think completing more education or training, like finishing a GED, going to college, or learning a trade, would be helpful for you? Patient declined 08/07/2024 Employment and Income Answer Date Recor ded During the last four weeks, have you been actively looking for work? Patient declined 08/07/2024 Living Situation Answer Date Recorded What is your living situation? 0 08/07/2024 Sex and Gender Information Value Date Recorded Sex Assigned at Not on file Legal Sex Male 1:24 PM EST Gender Identity Not on file Sexual Orientation Not on file Obstetrics History Last Filed Vital Signs Vital Sign Reading Time Taken Comments Blood Pressure 108/62 08/08/2024 8:37 AM EST Pulse 74 08/08/2024 8:37 AM EST Temperature 36.6 C (97.8 F) 08/08/2024 8:37 AM EST Respiratory Rate 16 08/08/2024 8:37 AM EST Oxygen Saturation - - Inhaled Oxygen Concentration - - Weight 91.6 kg (202 lb) 08/08/2024 8:37 AM EST Height 185.4 cm (6' 1 ) 12/15/2023 10:34 AM EDT Body Mass Index 26.65 12/15/2023 10:34 AM EDT Plan of Treatment Upcoming Encounters Date Type Department Care Team (Late st Contact Info) Description 01/24/2025 8:15 AM EDT Office Visit Internal Medicine - [address] [address] Akash Blas MD [address] [place] [address] Health Maintenance Due Date Last Done Comments Zoster Vaccines (1 of 2) 11/08/1983 Pneumococcal Vaccine: 50+ Years (2 of 2 - PCV) 01/26/2019 01/26/2018 COVID-19 Vaccine ( season) 2024 06/17/2023, 05/26/2022, 05/21/2021, Additional history exists Hypertension/CHF/CAD Annual BMP Blood Test 12/14/2024 12/15/2023 Influenza Vaccine (#1) 2025 , 03/30/2023, 04/01/2022, Additional history exists Colorectal Cancer Screening: Colonoscopy 08/02/2025 08/02/2020 Social Influencers of Health Screening 08/07/2025 08/07/2024 DTaP,Tdap,and Td Vaccines (4 - Td or Tdap) 01/27/2028 01/26/2018, 01/28/2008, 09/10/1998 Cholesterol Screening (Lipid Panel) 12/14/2028 12/15/2023 RSV Immunization Adult Patients (1 - 1-dose 75+ series) 11/08/2039 HIV Screening Completed 07/25/2020 Hepatitis C Screening Completed 07/25/2020 Depression Screening Completed 08/07/2024 HIB Vaccines Aged Out No longer eligi ble based on patient's age to complete this topic HPV Vaccines Aged Out No longer eligi ble based on patient's age to complete this topic Hepatitis A Vaccines Aged Out No long er eligible based on patient's age to complete this topic Hepatitis B Vaccines Aged Out No long er eligible [...] patient's age to complete this topic Meningococcal B Vaccine Aged Out No l onger eligible based on patient's age to complete [...] Results * Annual BMP Blood Test (12/15/2023) Pathologist [facility] Annual BMP Blood Test Abstracted us Historical Provider HEALTH MAINTENANCE Final Result * (ABNORMAL) Lipid panel (12/15/2023) LDL/HDL Ratio 5(A) 0 - 4 Triglycerides 183(A) 0 - 150 mg/dL Cholesterol 184 0 - 200 mg/dL HDL 40 >=40 mg/dL LDL Cholesterol 108(A) 0 - 100 mg/dL Blood Venous blood specimen / Unknown Result [facility] Provider LAB BLOOD ORDERABLES Amelia l Result * Colonoscopy (08/02/2020) Colonoscopy No interpretation , abstracted Anatomical Region Laterality Modality Other [facility] Provider HEALTH MAINTENANCE Final Result * HIV Screening (07/25/2020) Pathologist [facility] HIV Screening Abstracted [facility] Provider HEALTH MAINTENANCE Final Result * Hepatitis C Screening (07/25/2020) Hepatitis C Screening Abstracted [facility] Provider HEALTH MAINTENANCE Final Result from Last 3 Months or Most Recently Relevant to Health Maintenance Insurance [employer] Care Teams Fur Tailor Relationship Specialty Start Date End Date Akash Blas MD [address] [place] [phone] PCP - General Internal Medicine 05/11/24
--- OUTSIDE RECORDS SUMMARY | 2025-01-23 12:44 | XMS_ITS | Clinical Summary ---
Author Organization [facility] Facility Address [address] [place] [address] Care Team Providers Care Canvas Worker Apprentice Name Role Phone Unavailable Primary Care Provider [...] lesi on of membranous glomerulonephritis 08/20/2006 Immunizations Immunization Administration Dates Next Due Influenza TIV (IM) [...] Health Maintenance Due Date Last Done Comments Colorectal Cancer Screening: Annual FOBT 2013 Colorectal Cancer Screening: Colonoscopy 2013 Colorectal Cancer Screening: Sigmoidoscopy 2013 Pneumococcal Vaccine: 50+ Years (2 of 2 - PCV) 01/26/2019 01/26/2018 Influenza Vaccine (#1) 2025 , 04/20/2018 Pneumococcal Vaccine: Peds ( 0 to 5 Years) and At-Risk Patients (6 to 49 Years) Discontinued 01/26/2018 Hepatitis B Vaccine Aged Out No longe r eligible based on patient's age to complete this topic Insurance [facility]
== END 2025-01-23 11:45 | disposition home or self-care (01) ==
LOC: HO.HKA 11:28
PROVIDERS: PCP Internal Medicine; Visit Provider Internal Medicine Hypertension Specialist
DX: R79.89 Other specified abnormal findings of blood chemistry (principal); N05.1 Unspecified nephritic syndrome with focal and segmental glomerular lesions
CPT/HCPCS: 99214